=== PATIENT | female | born 1980 | race Caucasian/White ===

== ENCOUNTER 2016-04-10 07:39 | Emergency (ER) | payer BC ==
[2016-04-10 07:52] VITALS: BP 104/61
--- NOTE | 2016-04-10 10:05 | UC ---
Shakira Greene Claudia, scribed for Alicia Villalobos DO on 04/10/16 at 0821 . General HPI - HPI Summary HPI Summary: 35 year old female presents to the [facility] with general illness. Pt admits to cough , nasal discharge, fever, myalgia ,sinus congestion and sinus/mild FELIX for the past 2 days. She denies N/V/D, vaginal bleeding/discharge, RUQ/EPIGASTRIC abd pain, cantractions, swelling hands/feet, blurred. Pt is 27 weeks 3 para 1. She notes that today Sx worsened and decided to come to Urgent Care. - History of Current Complaint Chief Complaint: UCGeneralIllness Stated Complaint: FEVER 27 WEEKS PREG Hx Obtained From: Patient Onset/Duration: Gradual Onset, Still Present Timing: Constant Associated Signs & Symptoms: Positive: Cough, Fever, Headache - sinus FELIX, Other - sinus congestion. Negative: Abdominal Pain, Back Pain, Chest Pain, Diarrhea, Dysuria, Nausea, SOB, Vomiting - Allergy/Home Medications Allergies/Adverse Reactions: Allergies Allergy/AdvReac Type Severity Reaction Status Date / Time Tetanus Toxoid Allergy Severe PROJECTILE Verified 01/20/16 19:46 VOMITING Home Medications: Home Medications Albuterol HFA INHALER* [Ventolin HFA Inhaler*] 04/10/16 [History] PMH/Surg Hx/FS Hx/Imm Hx Previously Healthy: Yes Respiratory History Of: Reports: Asthma - Surgical History Surgical History: None - Family History Known Family History: Positive: Hypertension Negative: Cardiac Disease, Diabetes - Social History Lives: With Family Alcohol Use: None Substance Use Type: None Smoking Status (MU): Never Smoked Tobacco Have You Smoked in the Last Year: No - Immunization History Most Recent Influenza Vaccination: 2016 Most Recent Tetanus Shot: unknown Most Recent Pneumonia Vaccination: none Review of Systems Constitutional: Fever, Chills Skin: Negative Eyes: Negative ENT: Sore Throat, Nasal Discharge, Other - sinus congestion Respiratory: Cough Cardiovascular: Negative Gastrointestinal: Negative Genitourinary: Negative Motor: Negative Neurovascular: Negative Musculoskeletal: Myalgia Neurological: Headache - sinus FELIX Psychological: Negative All Other Systems Reviewed And Are Negative: Yes Physical Exam Triage Information Reviewed: Yes Appearance: Well-Appearing, No Pain Distress, Well-Nourished Vital Signs: Initial Vital Signs Temp 99.3 F 04/10/16 07:46 Pulse 119 04/10/16 07:46 Resp 18 04/10/16 07:46 BP 104/61 04/10/16 07:46 Pulse Ox 100 04/10/16 07:46 Vital Signs Reviewed: Yes Eye Exam: Normal Eyes: Positive: Conjunctiva Clear. Negative: Discharge ENT Exam: Normal ENT: Positive: Hearing grossly normal, Pharyngeal erythema, TMs normal. Negative: Tonsillar swelling, Tonsillar exudate, Trismus, Muffled/hoarse voice Dental Exam: Normal Neck exam: Normal Neck: Positive: Supple, Nontender Respiratory Exam: Normal Respiratory: Positive: Lungs clear, Normal breath sounds, No respiratory distress, No accessory muscle use Cardiovascular Exam: Normal Cardiovascular: Positive: RRR, No Murmur Abdominal Exam: Normal Abdomen Description: Positive: Nontender, Soft. Negative: CVA Tenderness (R), CVA Tenderness (L), Distended, Guarding Bowel Sounds: Positive: Present Musculoskeletal Exam: Normal Neurological Exam: Normal Neurological: Positive: Alert, Muscle Tone Normal Psychological Exam: Normal Psychological: Positive: Age Appropriate Behavior Skin Exam: Normal Course/Dx - Differential Dx - Multi-Symptom Differential Diagnoses: Other - pna, influenza, sinusitis Provider Diagnoses: influenza Discharge - Discharge Plan Condition: Stable Disposition: HOME Prescriptions: Oseltamivir Phosphate [Tamiflu] 75 mg PO BID #10 cap Patient Education Materials: Influenza (ED) Referrals: Brigid Medina MD [Primary Care Provider] - (FOLLOW UP IN 3-5 DAYS) Additional Instructions: Persons at higher risk for influenza complications recommended for antiviral treatment include: * children aged younger than 2 years;1 * adults aged 65 years and older; * persons with chronic pulmonary (including asthma), cardiovascular (except hypertension alone), renal, hepatic, hematological (including sickle cell disease), and metabolic disorders (including diabetes mellitus), or neurologic and neurodevelopment conditions (including disorders of the brain, spinal cord, peripheral nerve, and muscle, such as cerebral palsy, epilepsy [seizure disorders], stroke, intellectual disability [mental retardation], moderate to severe developmental delay, muscular dystrophy, or spinal cord injury); * persons with immunosuppression, including that caused by medications or by HIV infection; * women who are or (within 2 weeks after delivery); * persons aged younger than 19 years who are receiving long-term aspirin therapy ; * [place] Indians/[place] Natives; * persons who are morbidly obese (i.e., body mass index is equal to or greater than 40); and * residents of nursing homes and other chronic care facilities. The documentation as recorded by the Shakira hernandez Claudia accurately reflects the service I personally performed and the decisions made by , Alicia Villalobos DO.
== END 2016-04-10 09:00 | disposition home or self-care (01) ==
LOC: UCEAST 07:39
DX: O26.892 Other specified pregnancy related conditions, second trimester (principal); Z3A.27 27 weeks gestation of pregnancy; J11.1 Influenza due to unidentified influenza virus with other respiratory manifestations; Z88.7 Allergy status to serum and vaccine
CPT/HCPCS: 87502; 99212; G0463

== ENCOUNTER 2016-04-24 12:21 | Emergency (ER) | payer BC ==
[2016-04-24 12:59] VITALS: BP 106/64
--- NOTE | 2016-04-24 13:28 | UC ---
General HPI - HPI Summary HPI Summary: complaint of having chapped lips for apporx 2-3 days ago had dx of influenza 2 weeks ago and has runny nose and cough for 2 weeks still has nasal congestion - denies fever/chills lips feel tingly and red and dry using coconut oil on her lips without help used chapstick without relief - History of Current Complaint Chief Complaint: UCGeneralIllness Stated Complaint: SKIN ISSUE Time Seen by Provider: 04/24/16 13:11 Hx Obtained From: Patient - Allergy/Home Medications Allergies/Adverse Reactions: Allergies Allergy/AdvReac Type Severity Reaction Status Date / Time Tetanus Toxoid Allergy Severe PROJECTILE Verified 01/20/16 19:46 VOMITING Home Medications: Home Medications Progesterone SUPP (NF) [Endometrin SUPP (NF)] 100 mg VAGINAL 04/24/16 [History] PMH/Surg Hx/FS Hx/Imm Hx Previously Healthy: Yes - 29 weeks Respiratory History Of: Reports: Asthma - Surgical History Surgical History: None - Family History Known Family History: Positive: Hypertension Negative: Cardiac Disease, Diabetes - Social History Lives: With Family Alcohol Use: None Substance Use Type: None Smoking Status (MU): Never Smoked Tobacco Have You Smoked in the Last Year: No - Immunization History Most Recent Influenza Vaccination: 2016 Most Recent Tetanus Shot: unknown Most Recent Pneumonia Vaccination: none Review of Systems Constitutional: Negative Skin: Other - chapped lips ENT: Nasal Discharge Respiratory: Negative Cardiovascular: Negative Gastrointestinal: Negative Genitourinary: Negative Motor: Negative Neurovascular: Negative Musculoskeletal: Negative Neurological: Negative Psychological: Negative All Other Systems Reviewed And Are Negative: Yes Physical Exam Triage Information Reviewed: Yes Appearance: No Pain Distress, Well-Nourished Vital Signs: Initial Vital Signs Temp 97.7 F 04/24/16 12:54 Pulse 83 04/24/16 12:54 Resp 16 04/24/16 12:54 BP 106/64 04/24/16 12:54 Pulse Ox 98 04/24/16 12:54 Vital Signs Reviewed: Yes Eyes: Positive: Conjunctiva Clear ENT: Positive: Pharynx normal, Nasal congestion, Nasal drainage, TMs normal Neck: Positive: No Lymphadenopathy Respiratory: Positive: Lungs clear, Normal breath sounds, No respiratory distress, No accessory muscle use Cardiovascular: Positive: RRR, No Murmur, Pulses Normal Abdomen Description: Positive: Nontender, Soft, Distended Bowel Sounds: Positive: Present Musculoskeletal: Positive: No Edema Neurological: Positive: Alert Psychological Exam: Normal Skin Exam: Other - slin around lips dry and erythematous- no lesions Course/Dx - Differential Dx - Multi-Symptom Differential Diagnoses: Other - dry skin Provider Diagnoses: chapped , dry lips Discharge - Discharge Plan Condition: Stable Disposition: HOME Prescriptions: Mupirocin 2% OINT* [Bactroban 2 % Oint*] 1 applic TOPICAL BID #1 tube Patient Education Materials: Mupirocin (On the skin) Referrals: Brigid Medina MD [Primary Care Provider] - Additional Instructions: Start bactroban as directed Increase fluids and rest Take acetaminophen or ibuprofen for fever or pain Please review your discharge instructions. If your symptoms do not improve please call your primary care provider or return to urgent care
== END 2016-04-24 13:45 | disposition home or self-care (01) ==
LOC: UCEAST 12:21
DX: O26.893 Other specified pregnancy related conditions, third trimester (principal); Z3A.29 29 weeks gestation of pregnancy; L98.8 Other specified disorders of the skin and subcutaneous tissue; R09.81 Nasal congestion
CPT/HCPCS: 99212; G0463

== ENCOUNTER 2017-06-25 08:31 | Emergency (ER) | payer BC ==
[2017-06-25 08:41] VITALS: BP 111/67
--- NOTE | 2017-06-25 09:29 | UC ---
Oc Greene Jennifer, scribed for Ashley Mccloud MD on 06/25/17 at 0919 . Respiratory Complaint HPI - HPI Summary HPI Summary: The patient is a 36 year old female who complains of cough and sinus congestion for the past week. The patient explains that she has had body aches, sore throat , a productive cough, and a headache. Her cough produces green blobs of sputum. She denies fever, chills, nausea, vomiting, and diarrhea. The patient additionally complains of a decreased appetite, shortness of breath and chest pain in the mornings, and crusty eyes since two days ago. She adds that she has not been sleeping because of her [id number] child, and her [id number] son had croup two weeks ago. - History of Current Complaint Chief Complaint: UCRespiratory Stated Complaint: COUGH,SORE THROAT Time Seen by Provider: 06/25/17 09:11 Hx Obtained From: Patient Hx Last Menstrual Period: 29 weeks Onset/Duration: Sudden Onset, Lasting Weeks - 1 week, Still Present Timing: Constant Severity Initially: Moderate Severity Currently: Moderate Pain Intensity: 6 Pain Scale Used: 0-10 Numeric Character: Cough: Productive, Sputum Description: - Green blobs Aggravating Factors: Nothing Alleviating Factors: Nothing Associated Signs And Symptoms: Positive: Negative - fever, chills, nausea, vomiting, diarrhea, Pleuritic Chest Pain - In mornings, Nasal Congestion, Sinus Discomfort - Allergies/Home Medications Allergies/Adverse Reactions: Allergies Allergy/AdvReac Type Severity Reaction Status Date / Time Tetanus Vaccines and Toxoid Allergy See Comment Verified 06/25/17 08:42 PMH/Surg Hx/FS Hx/Imm Hx Previously Healthy: Yes - NEG: DM, HTN Respiratory History: Asthma - Surgical History Surgical History: Yes Surgery Procedure, Year, and Place: - Family History Known Family History: Positive: Hypertension Negative: Cardiac Disease, Diabetes - Social History Alcohol Use: Occasionally Substance Use Type: None Smoking Status (MU): Never Smoked Tobacco Have You Smoked in the Last Year: No - Immunization History Most Recent Influenza Vaccination: 2016 Most Recent Tetanus Shot: unknown Most Recent Pneumonia Vaccination: none Review of Systems Constitutional: Negative - Fever, chills Skin: Negative Eyes: Other - Crusty eyes ENT: Sore Throat, Sinus Congestion Respiratory: Shortness Of Breath - In the mornings, Cough Cardiovascular: Chest Pain - In the mornings Gastrointestinal: Negative - Nausea, vomiting, diarrhea Genitourinary: Negative Motor: Negative Neurovascular: Negative Musculoskeletal: Myalgia Neurological: Headache Psychological: Negative All Other Systems Reviewed And Are Negative: Yes Physical Exam Triage Information Reviewed: Yes Appearance: Ill-Appearing - looks unwell, Thin Vital Signs: Initial Vital Signs Temp 98.6 F 06/25/17 08:38 Pulse 79 06/25/17 08:38 Resp 18 06/25/17 08:38 BP 111/67 06/25/17 08:38 Pulse Ox 98 06/25/17 08:38 Eyes: Positive: Conjunctiva Inflamed - bilateral inflammation and drainage with mild lid swelling. ENT: Positive: Pharyngeal erythema, Nasal congestion, TMs normal, Other - percussive tenderness right maxillary sinus. Cardiovascular: Positive: RRR, No Murmur Musculoskeletal Exam: Normal Neurological Exam: Normal Neurological: Positive: Alert Psychological Exam: Normal Skin Exam: Normal UC Diagnostic Evaluation - Laboratory O2 Sat by Pulse Oximetry: 98 Respiratory Course/Dx - Course Course Of Treatment: The patient is a 36 year old female who complains of cough and sinus congestion for the past week. Pt medications reviewed this visit. Allergies noted. - Differential Dx/Diagnosis Provider Diagnoses: acute maxillary sinusitis. Discharge - Sign-Out/Discharge Documenting (check all that apply): Discharge - Discharge Plan Condition: Stable Disposition: HOME Prescriptions: Amoxicillin/Clavulanate TAB* [Augmentin TAB 875*] 875 mg PO BID #20 tab Polymyx/Trimethoprim OPTH* [Polytrim OPHTH*] 2 drop BOTH EYES Q3H #1 btl Patient Education Materials: Sinusitis (ED), Conjunctivitis (ED) Forms: *Work Release Referrals: Brigid Medina MD [Primary Care Provider] - Additional Instructions: Begin course of augmentin twice daily, and use drops for bilateral conjunctivitis. Augmentin is safe with . Ensure that you increase fluids, and rest as best you can. - Billing Disposition and Condition Condition: STABLE Disposition: HOME The documentation as recorded by the Oc hernandez Jennifer accurately reflects the service I personally performed and the decisions made by me, Ashley Mccloud MD.
== END 2017-06-25 09:31 | disposition home or self-care (01) ==
LOC: UCEAST 08:31
DX: O26.893 Other specified pregnancy related conditions, third trimester (principal); J01.00 Acute maxillary sinusitis, unspecified; R06.02 Shortness of breath; H57.8 Other specified disorders of eye and adnexa; R07.89 Other chest pain; Z3A.29 29 weeks gestation of pregnancy; J45.909 Unspecified asthma, uncomplicated; Z88.7 Allergy status to serum and vaccine
CPT/HCPCS: 99212; G0463